=== PATIENT | male | born 1955 | race American Indian/Alaskan Native ===

== ENCOUNTER 2017-01-25 17:30 | Emergency (ER) | payer OTHER ==
[2017-01-25 17:48] VITALS: BP 160/95
--- NOTE | 2017-01-25 18:23 | Emergency Department Report ---
ED Rash HPI - HPI Chief Complaint: Skin Rash Stated Complaint: RASH Time Seen by Provider: 01/25/17 18:11 Duration: 2 Days Location: Back, Abdomen, Upper Extremities, Lower Extremities Suspected Cause: Unknown (scabies exposure ) Rash Symptoms: Yes Itching, Yes Peeling, No Facial Swelling, No Tongue/Oral Swelling, No Breathing Difficulties, No Choking Sensation, No Wheezing/Dyspnea, No Blistering, No Fever, No Lightheaded, No Malaise, No Myalgias Severity: moderate ED Review of Systems ROS: Stated complaint: RASH Other details as noted in HPI Constitutional: denies: chills, fever Eyes: denies: eye pain, eye discharge, vision change ENT: denies: ear pain, throat pain Respiratory: denies: cough, shortness of breath, wheezing Cardiovascular: denies: chest pain, palpitations Endocrine: no symptoms reported Gastrointestinal: denies: abdominal pain, nausea, diarrhea Genitourinary: denies: urgency, dysuria Musculoskeletal: denies: back pain, joint swelling, arthralgia Skin: rash (red rash neck trunk abd bilat hand feet and forearms ), lesions Neurological: denies: headache, weakness, paresthesias Psychiatric: denies: anxiety, depression Hematological/Lymphatic: denies: easy bleeding, easy bruising ED Past Medical Hx - Past Medical History Previous Medical History?: Yes Hx Hypertension: Yes Hx Congestive Heart Failure: Yes Hx Diabetes: Yes - Surgical History Past Surgical History?: Yes Hx Appendectomy: Yes Additional Surgical History: right knee surgery. right shoulder reconstruction. hernia repair. parathyroidectomy - Social History Smoking Status: Former Smoker Substance Use Type: None - Medications Home Medications: Home Medications Medication Instructions Recorded Confirmed Last Taken Type oxyCODONE /ACETAMINOPHEN [Percocet 1 tab PO Q6HR PRN #20 tablet 04/24/15 Unknown Rx 5/325] Permethrin 5% [Acticin 5% CREAM] 1 applicatio TP ONCE #1 tube 01/25/17 Unknown Rx Triamcinolone 0.1% [Kenalog 0.1% 1 applic TP BID #80 gm 01/25/17 Unknown Rx CREAM] hydrOXYzine HCL [Atarax] 25 mg PO Q6HR #30 tablet 01/25/17 Unknown Rx Rash Exam - Exam General: Vital signs noted. No distress. Alert and acting appropriately. HEENT: No Periorbital Edema, No Conjuctival Injection, No Chemosis, No Perioral Edema, No Tongue Edema, No Uvular Edema, No Compromised Airway, No Drooling Lungs: Yes Good Air Exchange, No Wheezes, No Ronchi, No Stridor, No Cough, No Labored Respirations, No Retractions, No Use of Accessory Muscles, No Other Abnormal Lung Sounds Heart: Yes Regular, No Murmur Skin: Yes Urticarial Rash, Yes Excoriations, Yes Erythema, No Maculopapular Rash , No Morbilliform rash, No Bulla(e), No Weeping, No Tenderness, No Edema, No Encrustations, No Other Other: Positive: Abdomen Normal, Neurologic Normal, Musculoskeletal Normal ED Course Vital Signs 01/25/17 17:43 Temperature 98.4 F Pulse Rate 67 Respiratory 20 Rate Blood Pressure 160/95 O2 Sat by Pulse 100 Oximetry ED Medical Decision Making - Medical Decision Making pt is a 62 y/o aaf advises scabies / bedbug exposure to trip to [place] over the past 3 days rash itching bug bites since, exam consistent with scabies webs of hands feet waistline trunk abdomen, will tx with permethrin , triamcinolone oint, and atarax for itching pt given education on lines clothing and bedding pt verbalized understanding and agreement with same. Critical care attestation.: If time is entered above; I have spent that time in minutes in the direct care of this critically ill patient, excluding procedure time. ED Disposition Clinical Impression: Scabies exposure Disposition: DC-01 TO HOME OR SELFCARE Is pt being admited?: No Does the pt Need Aspirin: No Condition: Good Instructions: Scabies (ED) Prescriptions: hydrOXYzine HCL [Atarax] 25 mg PO Q6HR #30 tablet Permethrin 5% [Acticin 5% CREAM] 1 applicatio TP ONCE #1 tube Triamcinolone 0.1% [Kenalog 0.1% CREAM] 1 applic TP BID #80 gm Referrals: PRIMARY CARE, [Primary Care Provider] - 3-5 Days Forms: Work/School Release Form(ED) Time of Disposition: 18:26
== END 2017-01-25 18:40 | disposition home or self-care (01) ==
LOC: ED 17:30
DX: Z20.89 Contact with and (suspected) exposure to other communicable diseases (principal)
CPT/HCPCS: 99282